=== PATIENT | female | born 1940 | race Caucasian/White ===

== ENCOUNTER → 2018-11-14 | Outpatient (CLI) | payer OTHER ==
[2018-11-14 10:48] LABS: BASOPHILS ABSOLUTE AUTO 0.04 K/mm3 (0.00-0.23); BASOPHILS PERCENT AUTO 1 % (0-2); EOSINOPHILS ABSOLUTE AUTO 0.02 K/mm3 (0.00-0.68); EOSINOPHILS PERCENT AUTO 0 % (0-6); Hematocrit 41.5 % (33.0-51.0); IMMATURE GRAN ABSOLUTE AUTO 0.02 K/mm3 (0.00-0.10); IMMATURE GRAN PERCENT AUTO 0 % (0-1); LYMPHOCYTES ABSOLUTE AUTO 1.18 K/mm3 (0.84-5.20); LYMPHOCYTES PERCENT AUTO 15 % (21-46); MONOCYTES ABSOLUTE AUTO 0.72 K/mm3 (0.16-1.47); MONOCYTES PERCENT AUTO 9 % (4-13); Mean Corpuscular HGB 29.9 pg (26.0-34.0); Mean Corpuscular HGB Conc 33.7 g/dL (31.5-36.5); Mean Corpuscular Volume 89 fL (80-100); Mean Platelet Volume 10.3 fL (9.1-12.4); NEUTROPHILS ABSOLUTE AUTO 5.89 K/mm3 (1.96-9.15); NEUTROPHILS PERCENT AUTO 75 % (41-73); Platelet Count 422 K/mm3 (150-400); RDW Coefficient Variation 13.2 % (11.7-14.2); RDW Standard Deviation 42.7 fL (35.1-46.3); Red Blood Cell Count 4.69 M/mm3 (3.80-5.20); White Blood Cell Count 7.87 K/mm3 (4.00-11.30)
[2018-11-14 11:15] LABS: Alanine Aminotransfer (ALT/SGP 16 U/L (12-78); Albumin, Blood 3.6 g/dL (3.4-5.0); Albumin/Globulin Ratio 0.8 (0.8-1.8); Alk Phos 57 U/L (40-126); Anion Gap 8 mmol/L (6-16); Aspartate Aminotrans (AST/SGOT 20 U/L (12-37); Bilirubin, Total 0.4 mg/dL (0.1-1.0); Blood Urea Nitrogen 9 mg/dL (8-24); Bun/Creatinine Ratio 10.2 (12.0-20.0); CO2, Blood 30 mmol/L (21-32); CPK Creatine Kinase 83 U/L (26-192); Calcium, Blood 8.8 mg/dL (8.5-10.1); Chloride, Blood 102 mmol/L (98-108); Creatinine, Blood 0.88 mg/dL (0.40-1.00); Free Thyroxine 0.81 ng/dL (0.70-1.60); Globulin, Blood 4.5 g/dL (2.2-4.0); Glomerular Filtration Rate >60 (60-); Glucose, Blood 91 mg/dL (70-99); Potassium, Blood 3.8 mmol/L (3.5-5.5); Sodium, Blood 140 mmol/L (136-145); Thyroid Stimulating Hormone 1.481 uIU/mL (0.360-4.800); Total Protein, Blood 8.1 g/dL (6.4-8.2)
[2018-11-14 11:17] LABS: Troponin I <0.017 ng/mL (0.000-0.040)
== END | disposition home or self-care (01) ==
LOC: LAB EV 10:41 → LAB SHORT 10:41
PROVIDERS: General Practice
DX: R07.9 Chest pain, unspecified (principal)
CPT/HCPCS: 80053; 82550; 83880; 84439; 84443; 84484; 85025; 85379

== ENCOUNTER 2021-10-02 05:07 | Day surgery (SDC) | payer OTHER | END 2021-10-02 13:55 | disposition home or self-care (01) | LOC: ORSCSDS 05:07 | DX: M21.611 Bunion of right foot (principal); Z53.9 Procedure and treatment not carried out, unspecified reason | CPT/HCPCS: J0171; J0690; J7120 ==

== ENCOUNTER 2023-10-21 09:56 | Emergency (ER) | payer OTHER ==
[~2023-10-21] VITALS: Ht 157.5 cm; Wt 49.9 kg
[2023-10-21 10:41] VITALS: BP 117/82
== END 2023-10-21 11:07 | disposition home or self-care (01) ==
LOC: ER 09:56
DX: S92.355A Nondisplaced fracture of fifth metatarsal bone, left foot, initial encounter for closed fracture (principal); W19.XXXA Unspecified fall, initial encounter
CPT/HCPCS: 29515; 73630; 99283-25

== ENCOUNTER 2024-05-14 09:54 | Day surgery (SDC) | payer OTHER ==
[~2024-05-14] VITALS: Ht 157.5 cm; Wt 48.7 kg
[~2024-05-14 09:54] MED LIST: Balanced Salt Epinephrine Irrigation Solution 500 mL IR SCH; Lidocaine HCl/Pf 1% 5 ML VIAL XX SCH; Moxifloxacin HCL 0.5 MG/0.1 ML 0.4MLSYR RIGHTEYE SCH; NS 500 ML IV ONE; PHENYLEPHRINE\\TROPICAMIDE\\TETRACAINE OPHTHALMIC DILATING SOLN RIGHTEYE PRN; Povidone-Iodine 450 DROP/30 ML Solution RIGHTEYE SCH; Triamcinolone Inj Susp 40 MG / ML 1ML Vial INJ SCH
[2024-05-14] MEDS ORDERED: NS 500 ML IV ONE ×2 (10:10)
[2024-05-14] MEDS ORDERED: Midazolam HCl 1MG / ML 2ML Vial ONE (10:47)
[2024-05-14] MEDS ORDERED: FentaNYL Citrate 50 MCG/ML 2 ML Injection ONE (10:48)
[2024-05-14 11:58] VITALS: BP 132/82
== END 2024-05-14 12:07 | disposition home or self-care (01) ==
LOC: ORSCSDS 09:54
PROVIDERS: Ophthalmology
PROC: 08RJ3JZ Replacement of Right Lens with Synthetic Substitute, Percutaneous Approach (ICD-10-PCS; principal; 2024-05-14 11:30)
DX: H25.811 Combined forms of age-related cataract, right eye (principal); H52.201 Unspecified astigmatism, right eye
CPT/HCPCS: J2250; J3010; J7040; V2632

== ENCOUNTER 2024-11-18 10:15 | Emergency (ER) | payer OTHER ==
[~2024-11-18] VITALS: Ht 157.5 cm; Wt 49.9 kg
[2024-11-18 10:28] VITALS: BP 138/112
[2024-11-18 11:01] LABS: BASOPHILS ABSOLUTE AUTO 0.06 K/mm3 (0.00-0.23); BASOPHILS PERCENT AUTO 1 % (0-2); EOSINOPHILS ABSOLUTE AUTO 0.01 K/mm3 (0.00-0.68); EOSINOPHILS PERCENT AUTO 0 % (0-6); Hematocrit 36.8 % (33.0-51.0); Hemoglobin 12.8 g/dL (11.5-16.0); IMMATURE GRAN ABSOLUTE AUTO 0.07 K/mm3 (0.00-0.10); IMMATURE GRAN PERCENT AUTO 1 % (0-1); LYMPHOCYTES ABSOLUTE AUTO 0.76 K/mm3 (0.84-5.20); LYMPHOCYTES PERCENT AUTO 7 % (21-46); MONOCYTES ABSOLUTE AUTO 0.99 K/mm3 (0.16-1.47); MONOCYTES PERCENT AUTO 10 % (4-13); Mean Corpuscular HGB 29.5 pg (26.0-34.0); Mean Corpuscular HGB Conc 34.8 g/dL (31.5-36.5); Mean Corpuscular Volume 85 fL (80-100); Mean Platelet Volume 8.8 fL (9.1-12.4); NEUTROPHILS ABSOLUTE AUTO 8.48 K/mm3 (1.96-9.15); NEUTROPHILS PERCENT AUTO 82 % (41-73); Platelet Count 512 K/mm3 (150-400); RDW Coefficient Variation 13.3 % (11.7-14.2); RDW Standard Deviation 41.3 fL (35.1-46.3); Red Blood Cell Count 4.34 M/mm3 (3.80-5.20); White Blood Cell Count 10.37 K/mm3 (4.00-11.30)
[2024-11-18 11:16] LABS: CORONAVIRUS COVID-19 AG Negative (NEGATIVE); INFLUENZA A AG Positive (NEGATIVE); INFLUENZA B AG Negative (NEGATIVE)
[2024-11-18 11:27] LABS: Albumin, Blood 3.2 g/dL (3.4-5.0); Albumin/Globulin Ratio 0.7 (0.8-1.8); Bilirubin, Total 0.2 mg/dL (0.1-1.0); Bun/Creatinine Ratio 12.1 (12.0-20.0); Creatinine, Blood 0.83 mg/dL (0.40-1.00); Globulin, Blood 4.7 g/dL (2.2-4.0); Potassium, Blood 4.2 mmol/L (3.5-5.5); Total Protein, Blood 7.9 g/dL (6.4-8.2)
== END 2024-11-18 12:37 | disposition home or self-care (01) ==
LOC: ER 10:15
PROVIDERS: Student in an Organized Health Care Education/Training Program
DX: J10.1 Influenza due to other identified influenza virus with other respiratory manifestations (principal); I45.6 Pre-excitation syndrome
CPT/HCPCS: 71046; 80053; 83880; 84145; 85025; 87428-QW; 93005; 93010; 99284-25

== ENCOUNTER 2024-11-20 14:25 | Inpatient (IN) | payer OTHER ==
[~2024-11-20] VITALS: Ht 157.5 cm; Wt 48.8 kg
[2024-11-20 15:05] LABS: BASOPHILS ABSOLUTE AUTO 0.03 K/mm3 (0.00-0.23); BASOPHILS PERCENT AUTO 0 % (0-2); EOSINOPHILS PERCENT AUTO 0 % (0-6); Hematocrit 40.5 % (33.0-51.0); IMMATURE GRAN ABSOLUTE AUTO 0.06 K/mm3 (0.00-0.10); IMMATURE GRAN PERCENT AUTO 0 % (0-1); LYMPHOCYTES ABSOLUTE AUTO 0.76 K/mm3 (0.84-5.20); LYMPHOCYTES PERCENT AUTO 5 % (21-46); MONOCYTES ABSOLUTE AUTO 0.46 K/mm3 (0.16-1.47); MONOCYTES PERCENT AUTO 3 % (4-13); Mean Corpuscular HGB 29.9 pg (26.0-34.0); Mean Corpuscular HGB Conc 34.6 g/dL (31.5-36.5); Mean Corpuscular Volume 86 fL (80-100); Mean Platelet Volume 9.1 fL (9.1-12.4); NEUTROPHILS ABSOLUTE AUTO 13.65 K/mm3 (1.96-9.15); NEUTROPHILS PERCENT AUTO 91 % (41-73); Platelet Count 464 K/mm3 (150-400); RDW Coefficient Variation 13.5 % (11.7-14.2); RDW Standard Deviation 41.7 fL (35.1-46.3); Red Blood Cell Count 4.69 M/mm3 (3.80-5.20); White Blood Cell Count 14.96 K/mm3 (4.00-11.30)
[2024-11-20 15:31] LABS: Albumin, Blood 3.1 g/dL (3.4-5.0); Albumin/Globulin Ratio 0.6 (0.8-1.8); Bilirubin, Total 0.2 mg/dL (0.1-1.0); Bun/Creatinine Ratio 17.6 (12.0-20.0); Creatinine, Blood 0.8 mg/dL (0.40-1.00); Globulin, Blood 5.2 g/dL (2.2-4.0); Potassium, Blood 4.1 mmol/L (3.5-5.5); Total Protein, Blood 8.3 g/dL (6.4-8.2)
[2024-11-20] MEDS ORDERED: Ondansetron HCl 2 MG / ML 2ML Vial IV ONE (17:05)
[2024-11-20] MEDS ORDERED: Lactated Ringer's 1,000 ML IV SCH (17:05)
[2024-11-20] MEDS ORDERED: Ipratropium/Albuterol SulF 2.5-0.5MG/3 ML Amp INH PRN (18:50)
[2024-11-20] MEDS ORDERED: FLU VACC TS2024-25(6MOS UP)/PF 45 MCG/0.5 ML SYRINGE IM SCH (18:50)
[2024-11-20] MEDS ORDERED: Ondansetron HCl 2 MG / ML 2ML Vial IV PRN (18:50)
[2024-11-20] MEDS ORDERED: Oseltamivir Phosphate 75 MG Cap PO ONE (19:00)
[2024-11-20] MEDS ORDERED: NS 1,000 ML IV SCH (19:35)
[2024-11-20] MEDS ORDERED: Benzonatate 100 MG Cap PO PRN (20:00)
[2024-11-20] MEDS ORDERED: MethylPREDNISolone Sod Succ 125 MG Vial IV SCH (20:00)
[2024-11-20] MEDS ORDERED: Guaifenesin/Dextromethorphan Syrup 5 ML UDC PO PRN (20:00)
[2024-11-20] MEDS ORDERED: Enoxaparin 40 MG/0.4 ML SYR SC SCH (21:00)
[2024-11-20 21:56] VITALS: BP 116/67
[2024-11-20] MEDS ORDERED: Acetaminophen 325 MG TABLET PO PRN (23:10)
--- NOTE | 2024-11-20 23:39 | NUR ---
PATIENT IS A NEW ADMIT FROM THE ED. ALERT ORIENTED, MODOC, AND SBA TRANSFER FROM [facility] TO BED. ON 2L O2 NC FROM ED AND RA BASELINE. DENIES CHEST PAIN, SOB, AND N/V. TELEMETRY PLACED, NSR 67. POSITIVE COUGH AND GUAIFENESIN 10 mL GIVEN PER EMAR. TEMP 100.[address] FOX ORDERED TYLENOL 650 MG. DAUGHTER CAME IN DURING ADMIT AND STAYED FOR A COUPLE HOURS. ORIENTED TO ROOM AND CALL LIGHT SYSTEM. REPORTS WANTS TO SLEEP AFTER ASSESSMENT. WCTM.
[2024-11-21 03:27] VITALS: BP 112/68
--- NOTE | 2024-11-21 04:11 | NUR ---
SHIFT SUMMARY PATIENT FEBRILE ON ADMIT 100.7 AND TYLENOL 650 MG GIVEN WITH RECHECK 97.6. ALERT AND ORIENTED, NEWTOK, AND SBA TO BR. ON 2L O2 N/C AND RA BASELINE. PIV INTACT. NS INFUSING @ 75 mL/HR X ONE BAG. TELE MONITOR NSR 67. DENIES CHEST PAIN, SOB, AND N/V. GUAIFENESIN 10 mL GIVEN FOR COUGH. SLEPT AFTER ADMIT. BED ALARM ON BEING FORGETFUL. CALL LIGHT IN REACH. WILL CONTINUE TO MONITOR UNTIL DAY SHIFT NURSE ASSUMES CARE.
[2024-11-21 06:12] LABS: BASOPHILS ABSOLUTE AUTO 0.02 K/mm3 (0.00-0.23); BASOPHILS PERCENT AUTO 0 % (0-2); EOSINOPHILS PERCENT AUTO 0 % (0-6); Hematocrit 39.5 % (33.0-51.0); Hemoglobin 13.3 g/dL (11.5-16.0); IMMATURE GRAN ABSOLUTE AUTO 0.04 K/mm3 (0.00-0.10); IMMATURE GRAN PERCENT AUTO 0 % (0-1); LYMPHOCYTES ABSOLUTE AUTO 0.59 K/mm3 (0.84-5.20); LYMPHOCYTES PERCENT AUTO 5 % (21-46); MONOCYTES ABSOLUTE AUTO 0.18 K/mm3 (0.16-1.47); MONOCYTES PERCENT AUTO 2 % (4-13); Mean Corpuscular HGB 29.6 pg (26.0-34.0); Mean Corpuscular HGB Conc 33.7 g/dL (31.5-36.5); Mean Corpuscular Volume 88 fL (80-100); Mean Platelet Volume 9.4 fL (9.1-12.4); NEUTROPHILS ABSOLUTE AUTO 11.37 K/mm3 (1.96-9.15); NEUTROPHILS PERCENT AUTO 93 % (41-73); Platelet Count 394 K/mm3 (150-400); RDW Coefficient Variation 13.5 % (11.7-14.2); RDW Standard Deviation 43.6 fL (35.1-46.3); Red Blood Cell Count 4.49 M/mm3 (3.80-5.20)
[2024-11-21 06:50] LABS: Albumin, Blood 2.4 g/dL (3.4-5.0); Albumin/Globulin Ratio 0.5 (0.8-1.8); Bilirubin, Total 0.4 mg/dL (0.1-1.0); Bun/Creatinine Ratio 20.9 (12.0-20.0); Calcium, Blood 8.9 mg/dL (8.5-10.1); Creatinine, Blood 0.62 mg/dL (0.40-1.00); Globulin, Blood 4.7 g/dL (2.2-4.0); Total Protein, Blood 7.1 g/dL (6.4-8.2)
[2024-11-21 07:40] VITALS: BP 124/70
[2024-11-21] MEDS ORDERED: Oseltamvir Phosphate 30 MG Cap PO SCH (09:00)
--- NOTE | 2024-11-21 10:45 | NUR ---
REPORT RECEIVED ASSUMNED CARE. A/O X4 INDEPENDANT IN RM AND FEELING BETTER. PT HUNGRY AND WANTING TO EAT. MEPILEX PLACED TO COCCYX AREA FOR PROTECTION. FAMILY AT BEDSIDE ASSISTING WITH CARE.
[2024-11-21] MEDS ORDERED: Azithromycin 250 MG Tab PO ONE ×2 (14:40→17:00)
[2024-11-21 15:14] VITALS: BP 106/66
--- NOTE | 2024-11-21 19:12 | NUR ---
no change in pt condition has remained independant in rm. pt is able to make needs know and has call light within reach
[2024-11-21 19:21] VITALS: BP 106/66
[2024-11-22 02:52] VITALS: BP 105/67
--- NOTE | 2024-11-22 04:12 | NUR ---
SHIFT SUMMARY PATIENT HAD NO ACUTE CHANGES. ALERT, ORIENTED, AND INDEPENDENT IN ROOM. DENIES CHEST PAIN, SOB, AND N/V. VSS/AFEBRILE. PIV INTACT. TELE MONITOR NSR 69. COOPERATIVE WITH CARE. DAUGHTER VISITED FOR A FEW HOURS. SLEPT MOST OF THE SHIFT. CALL LIGHT IN REACH. BED IN LOWEST POSITION. WILL CONTINUE TO MONITOR UNTIL DAY SHIFT NURSE ASSUMES CARE.
[2024-11-22 09:00] VITALS: BP 110/69
[2024-11-22] MEDS ORDERED: PredniSONE 20 MG Tab PO SCH (09:00)
[2024-11-22] MEDS ORDERED: Azithromycin 250 MG Tab PO SCH (09:00)
[2024-11-22] MEDS ORDERED: ACET325 PO (12:05)
[2024-11-22] MEDS ORDERED: AZIT250 PO (12:06)
[2024-11-22] MEDS ORDERED: Tessalon200 MG PO (12:07)
[2024-11-22] MEDS ORDERED: [UNRECOGNIZED DRUG - OTHER] PO (12:11)
[2024-11-22] MEDS ORDERED: OSEL75CA PO (12:12)
== END 2024-11-22 13:18 | disposition home or self-care (01) | DRG 193 ==
LOC: ER 14:25 → ERHOLD 18:45 → MEDS 18:45
PROVIDERS: Student in an Organized Health Care Education/Training Program; ADMIT Internal Medicine
DX: J10.1 Influenza due to other identified influenza virus with other respiratory manifestations (principal); J96.01 Acute respiratory failure with hypoxia; I45.6 Pre-excitation syndrome; J98.4 Other disorders of lung; E86.0 Dehydration; Z90.710 Acquired absence of both cervix and uterus; Z90.81 Acquired absence of spleen; Z98.49 Cataract extraction status, unspecified eye; Z88.8 Allergy status to other drugs, medicaments and biological substances; R05.9 Cough, unspecified; R51.9 Headache, unspecified
CPT/HCPCS: 36415; 71045; 71046; 80053; 83880; 84145; 85025; 87428-QW; 93005; 93010; 93306; 96361; 96374; 99284-25; 99285-25; A9270; J1650; J2405; J2919; J7030; J7120; J7512